=== PATIENT | male | born 1970 | race Caucasian/White ===

== ENCOUNTER 2018-01-12 13:09 | Inpatient (IN) | payer OTHER ==
[2018-01-12] VITALS (7 sets, daily range): BP systolic 112–121; BP diastolic 62–76; PULSE 60–69; RESP 12–16; TEMP 97.4–98.3; O2SAT 96–100
[~2018-01-12] VITALS: Ht 172.7 cm; Wt 81.1 kg
[~2018-01-12 13:09] MED LIST: DEXAMETHASONE SOD PHOS 4 MG/ML VIAL IV ONE; GLYCOPYRROLATE 1 MG/5 ML SYRINGE IV PUSH ONE; LIDOCAINE HCL 1% PF 5 ML SYRINGE OTHER ONE; NEOSTIGMINE 5 MG/5 ML SYRINGE IV PUSH ONE; ONDANSETRON HCL 4 MG/2 ML VIAL IV ONE; PROPOFOL 200 MG/20 ML AMP IV ONE; ROCURONIUM INJ 50 MG/5 ML SYRINGE IV PUSH ONE; SODIUM CHLOR 0.9% 1000 ML INJ 2,000 ML IV ONE; SUCCINYLCHOLINE CHLORIDE 100 MG/5 ML SYRINGE IV PUSH ONE; ceFAZolin INJ 1,000 MG VIAL IV ONE
[2018-01-12] MEDS ORDERED: SODIUM CHLORIDE 0.9% FLUSH 10 ML FLUSH IV FLUSH PRN (13:30)
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
[2018-01-12 13:42] LABS: AUTOMATED NEUTROPHIL # 9.7 TH/MM3 (1.8-7.7); BASOPHIL % 0.2 % (0.0-2.0); EOSINOPHIL # 0.1 TH/MM3 (0-0.4); EOSINOPHIL % 0.4 % (0.0-4.0); HEMATOCRIT 41.7 % (39.0-51.0); HEMOGLOBIN 14.3 GM/DL (13.0-17.0); LYMPH % 19.2 % (9.0-44.0); LYMPHOCYTE # 2.5 TH/MM3 (1.0-4.8); MEAN CELL VOLUME 92.7 FL (80.0-100.0); MEAN CORPUSCULAR HEMOGLOBIN 31.9 PG (27.0-34.0); MEAN CORPUSCULAR HGB CONC 34.4 % (32.0-36.0); MEAN PLATELET VOLUME 7.5 FL (7.0-11.0); MONO % 5.4 % (0.0-8.0); MONOCYTE # 0.7 TH/MM3 (0-0.9); NEUT % 74.8 % (16.0-70.0); PLATELET COUNT 200 TH/MM3 (150-450); RED CELL DISTRIBUTION WIDTH 12.7 % (11.6-17.2)
[2018-01-12 14:00] LABS: ALBUMIN 3.5 GM/DL (3.4-5.0); ALT (GPT) 19 U/L (12-78); AST (GOT) 13 U/L (15-37); BICARBONATE 26.5 MEQ/L (21.0-32.0); BLOOD UREA NITROGEN 15 MG/DL (7-18); CALCIUM 7.8 MG/DL (8.5-10.1); CHLORIDE 110 MEQ/L (98-107); CREATININE 1.13 MG/DL (0.60-1.30); GLOMERULAR FILTRATION RATE 70 ML/MIN (>89); GLUCOSE,RANDOM 121 MG/DL (74-106); SODIUM (NA) 144 MEQ/L (136-145)
[2018-01-12 14:02] LABS: ALKALINE PHOSPHATASE 38 U/L (45-117); TOTAL BILIRUBIN ADULT 0.6 MG/DL (0.2-1.0); TOTAL PROTEIN 6.4 GM/DL (6.4-8.2)
[2018-01-12 14:15] LABS: BILIRUBIN, URINE NEG (NEG); BLOOD, URINE NEG (NEG); GLUCOSE,URINE NEG (NEG); HYALINE CAST, URINE 5 /lpf (RARE); KETONE, URINE NEG (NEG); MUCUS URINE FEW /lpf (OCC); NITRITE,URINE NEG (NEG); PH, URINE 7.5 (5.0-8.5); URINE COLOR YELLOW (YELLW/STRAW); URINE LEUKOCYTE ESTERASE NEG (NEG)
[2018-01-12] MEDS ORDERED: PROPOFOL 200 MG/20 ML AMP IV ONE (14:15)
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
--- NOTE | 2018-01-12 15:13 | RADRPT ---
EXAM DATE/TIME: 01/12/2018 14:31 [facility] COMPARISON: ANKLE RIGHT COMPLETE ([id number]), January 12, 2018, 13:47. INDICATIONS : Post reduction of right ankle. MEDICAL HISTORY : Unresponsive. SURGICAL HISTORY : Unresponsive. ENCOUNTER: Initial ACUITY: 1 day PAIN SCORE: Non-responsive. LOCATION: Right Ankle. FINDINGS: There has been successful reduction of the previously seen ankle dislocation. The distal tibia and ta elmer are well aligned. The medial and lateral malleolar fragments are well aligned. There is a vertica l fracture through the anterior aspect of the distal tibia extending into the ankle joint. CONCLUSION: Successful reduction of the previously seen fracture/dislocation. James Guillen MD on January 12, 2018 at 15:09 Board Certified Radiologist. This report was verified electronically.
[2018-01-12] MEDS ORDERED: ACETAMINOPHEN 1000 MG/100 ML 100 ML IV ONE (15:33)
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
[2018-01-12] MEDS ORDERED: BUPIVACAINE HCL PF 0.25% 30 ML VIAL ONE (15:47)
[2018-01-12] MEDS ORDERED: NEOMYCIN/POLYMYXIN 1 ML G.U. IRRIGANT ONE (15:51)
[2018-01-12] MEDS ORDERED: MIDAZOLAM HCL 2 MG/2 ML VIAL ONE (18:06)
[2018-01-12] MEDS ORDERED: ceFAZolin INJ 1,000 MG VIAL IV ONE (18:14)
[2018-01-12] MEDS ORDERED: MAGNESIUM HYDROXIDE SUSP 30 ML CUP PO PRN (18:15)
[2018-01-12] MEDS ORDERED: Post-op Orders (for Pharmacy) XX ONE (18:15)
[2018-01-12] MEDS ORDERED: BISACODYL 10 MG SUPP RECTAL PRN (18:15)
[2018-01-12] MEDS ORDERED: LACTULOSE SYRUP 20 GM/30 ML CUP PO PRN (18:15)
[2018-01-12] MEDS ORDERED: PROMETHAZINE HCL 25 MG TAB PO PRN (18:15)
[2018-01-12] MEDS ORDERED: ZOLPIDEM TARTRATE 5 MG TAB PO PRN (18:15)
--- NOTE | 2018-01-12 18:16 | RADRPT ---
EXAM DATE/TIME: 01/12/2018 17:38 [facility] COMPARISON: No previous studies available for comparison. INDICATIONS : Right ankle ORIF with external fixation. MEDICAL HISTORY : None. SURGICAL HISTORY : None. ENCOUNTER: Initial ACUITY: 1 day PAIN SCORE: Non-responsive. LOCATION: Right ankle. CONCLUSION: Fluoroscopic images during placement of external fixation device. Bimalleolar fractures are seen. Vik Drew MD on January 12, 2018 at 18:13 Board Certified Radiologist. This report was verified electronically.
--- NOTE | 2018-01-12 18:25 | HHI.PR ---
Immediate Post Op Note Procedure Date: Jan 12, 2018 Pre Op Diagnosis: Right open ankle fracture dislocation Post Op Diagnosis: same Surgeon: Eric Wade Supervisor/Port Director(s): scrub Procedure: Right ankle incision bone debridement application of external fixator. Findings: mild contamination of fibula, dirt, grass Complications: None Specimen(s) removed: 2x deep bone cx, fibula and deep ankle Estimated blood loss: 50mL Anesthesia: General, Local Drains: None Tourniquet time (min at mmHg) 51 min 250 mmhg right ankle Patient to: Other Patient Condition: Good Implant/Devices: SEE IMPLANT LOG (if applicable) Date/Time of Procedure: SEE SURGICAL CARE RECORD Eric Wade DPM Jan 12, 2018 18:25
[2018-01-12] MEDS ORDERED: *MEPERIDINE 25 MG INJ VIAL PERIprocedural Use ONLY ONE (18:37)
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
[2018-01-12] MEDS: HYDROmorphone HCL PF 2 MG/ML VIAL IV PUSH PRN (20:45)
[2018-01-12] MEDS: DOCUSATE SODIUM 50 MG/SENNA 8.6 MG TAB PO SCH (20:47)
[2018-01-13] VITALS: BP 103/58; PULSE 63; RESP 18; TEMP 98.3; O2SAT 95
[2018-01-13] MEDS: ACETAMINOPHEN/HYDROcodone 325 MG/5 MG TAB PO PRN ×2 (02:54→19:56)
[2018-01-13 04:00] VITALS: BP 113/50; PULSE 80; RESP 16; TEMP 98.1; O2SAT 96
[2018-01-13] MEDS: ENOXAPARIN SODIUM 40 MG/0.4 ML SYRINGE SQ SCH (06:43)
[2018-01-13 08:00] VITALS: BP 103/56; PULSE 64; RESP 18; TEMP 98.3; O2SAT 97
[2018-01-13] MEDS ORDERED: MAGN30S PO (08:07)
[2018-01-13] MEDS ORDERED: PERI PO (08:07)
[2018-01-13] MEDS: FAMOTIDINE 20 MG TAB PO SCH ×2 (08:49→19:56)
[2018-01-13] MEDS: DOCUSATE SODIUM 50 MG/SENNA 8.6 MG TAB PO SCH ×2 (08:49→19:56)
--- NOTE | 2018-01-13 10:45 | PD.POD ---
Subjective Pain score: 7 Remarks No events overnight pain appears to be somewhat controlled with oral meds, he is seen bedside with his Past Med/Surg/Social History Social History Smoking Status: Never Smoker Objective Vital Signs Vital Signs Date Time Temp Pulse Resp B/P (MAP) Pulse Ox O2 Delivery O2 Flow Rate FiO2 01/13/18 08:00 98.3 64 18 103/56 (72) 97 01/13/18 04:00 98.1 80 16 113/50 (71) 96 01/13/18 00:00 98.3 63 18 103/58 (73) 95 01/12/18 20:38 99 Nasal Cannula 2.00 01/12/18 20:00 98.3 60 16 121/76 (91) 100 01/12/18 18:45 98.5 65 14 139/81 (100) 99 Nasal Cannula 2 01/12/18 18:30 62 14 136/79 (98) 100 Nasal Cannula 2 01/12/18 18:15 69 14 132/76 (94) 100 Nasal Cannula 2 01/12/18 18:00 98.5 57 14 123/69 (87) 100 Nasal Cannula 2 01/12/18 15:32 65 12 112/62 (79) 98 Nasal Cannula 2.00 01/12/18 15:32 65 12 112/62 (79) 98 Nasal Cannula 2.00 01/12/18 14:40 98 4.00 01/12/18 13:27 97.4 60 12 115/70 (85) 96 Nasal Cannula 2.00 01/12/18 13:25 97.4 68 12 115/70 (85) 96 Nasal Cannula 2.00 01/12/18 13:24 66 12 96 Nasal Cannula 2.00 01/12/18 13:15 97.4 69 12 115/70 (85) 96 Coded Allergies: No Known Allergies (Unverified , 01/12/18) Medications and IVs Administered Medications Medications (Trade) Dose Ordered Sig/Kristan Route PRN Reason Start Time Stop Time Status Last Admin Dose Admin Sodium Chloride (NS Flush) 2 ml UNSCH PRN IV FLUSH FLUSH AFTER USING IV ACCESS 01/12/18 13:30 01/12/18 20:47 Hydromorphone HCl (Dilaudid Pf Inj) 1 mg Q3H PRN IV PUSH breakthrough pain 01/12/18 18:15 01/12/18 20:45 Acetaminophen/ Hydrocodone Bitart ([place] 5-325 Mg) 1 tab Q4H PRN PO PAIN 1-5 01/12/18 18:15 01/13/18 02:54 Senna/Docusate Sodium (Magdalene-Colace) 1 tab BID PO 01/12/18 21:00 01/13/18 08:49 Enoxaparin Sodium (Lovenox Inj) 40 mg Q24H SQ 01/13/18 06:00 01/13/18 06:43 Famotidine (Pepcid) 20 mg BID PO 01/13/18 09:00 01/13/18 08:49 Other Results Laboratory Tests Test 01/12/18 13:30 White Blood Count 13.0 TH/MM3 Red Blood Count 4.50 MIL/MM3 Hemoglobin 14.3 GM/DL Hematocrit 41.7 % Mean Corpuscular Volume 92.7 FL Mean Corpuscular Hemoglobin 31.9 PG Mean Corpuscular Hemoglobin Concent 34.4 % Red Cell Distribution Width 12.7 % Platelet Count 200 TH/MM3 Mean Platelet Volume 7.5 FL Neutrophils (%) (Auto) 74.8 % Lymphocytes (%) (Auto) 19.2 % Monocytes (%) (Auto) 5.4 % Eosinophils (%) (Auto) 0.4 % Basophils (%) (Auto) 0.2 % Neutrophils # (Auto) 9.7 TH/MM3 Lymphocytes # (Auto) 2.5 TH/MM3 Monocytes # (Auto) 0.7 TH/MM3 Eosinophils # (Auto) 0.1 TH/MM3 Basophils # (Auto) 0.0 TH/MM3 CBC Comment DIFF FINAL Differential Comment Laboratory Tests Test 01/12/18 13:30 Blood Urea Nitrogen 15 MG/DL Creatinine 1.13 MG/DL Random Glucose 121 MG/DL Total Protein 6.4 GM/DL Albumin 3.5 GM/DL Calcium Level 7.8 MG/DL Alkaline Phosphatase 38 U/L Aspartate Amino Transf (AST/SGOT) 13 U/L Alanine Aminotransferase (ALT/SGPT) 19 U/L Total Bilirubin 0.6 MG/DL Sodium Level 144 MEQ/L Potassium Level 3.8 MEQ/L Chloride Level 110 MEQ/L Carbon Dioxide Level 26.5 MEQ/L Anion Gap 8 MEQ/L Estimat Glomerular Filtration Rate 70 ML/MIN Microbiology Date/Time Source Procedure Growth Status 01/12/18 17:43 Wound Ankle Fungal Smear Pending Received 01/12/18 17:43 Wound Ankle Fungal Culture Pending Received 01/12/18 17:43 Wound Ankle Acid Fast Stain Pending Received 01/12/18 17:43 Wound Ankle Mycobacterial Culture Pending Received 01/12/18 17:43 Wound Ankle Gram Stain - Final Resulted 01/12/18 17:43 Wound Ankle Wound Culture Pending Resulted 01/12/18 17:43 Wound Leg Fungal Smear Pending Received 01/12/18 17:43 Wound Leg Fungal Culture Pending Received 01/12/18 17:43 Wound Leg Acid Fast Stain Pending Received 01/12/18 17:43 Wound Leg Mycobacterial Culture Pending Received 01/12/18 17:43 Wound Leg Gram Stain - Final Resulted 01/12/18 17:43 Wound Leg Wound Culture Pending Resulted Objective Remarks Last 72 hours Impressions Chest X-Ray 01/12/18 1319 Signed Impressions: Service Date/Time: Friday, January 12, 2018 13:45 - CONCLUSION: No acute disease. James Guillen MD Ankle X-Ray 01/12/18 1319 Signed Impressions: Service Date/Time: Friday, January 12, 2018 13:47 - CONCLUSION: Fracture and dislocation at the ankle with the foot, medial and lateral malleoli fracture fragments being medially displaced. James Guillen MD Pelvis X-Ray 01/12/18 0000 Signed Impressions: Service Date/Time: Friday, January 12, 2018 13:41 - CONCLUSION: No acute disease. James Guillen MD Lower Extremity CT 01/12/18 0000 Signed Impressions: Service Date/Time: Friday, January 12, 2018 15:03 - CONCLUSION: Distal tibia and fibular fractures as described above. The ankle is aligned. The fracture fragments are fairly well aligned. James Guillen MD Ankle X-Ray 01/12/18 0000 Signed Impressions: Service Date/Time: Friday, January 12, 2018 17:38 - CONCLUSION: Fluoroscopic images during placement of external fixation device. Bimalleolar fractures are seen. Vik Drew MD Ankle X-Ray 01/12/18 0000 Signed Impressions: Service Date/Time: Friday, January 12, 2018 14:31 - CONCLUSION: Successful reduction of the previously seen fracture/dislocation. James Guillen MD Exam-Podiatry Remarks Right lower extremity: External fixator intact tibia to calcaneus, good alignment of ankle, positive range of motion of digits, neurovascular status intact, no strikethrough noted on bandage. Left lower extremity: Superficial abrasion to the anterior knee, bandage in place. Good range of motion left foot and ankle neurovascular status intact Physical Exam General appearance: comfortable Nutritional status: normal Orientation: alert and oriented x3 Neck: FINDINGS: normal Chest appearance: normal Respiratory effort: FINDINGS: normal Affect: normal Assessment & Plan A/P Right open ankle fracture dislocation Postop day 1, application of external fixator with incision irrigation and debridement. Wound cultures pending, patient has received IV antibiotics, continue pain management. Bandage to be changed tomorrow to evaluate soft tissue, possible definitive surgery as early as Sunday. Dr. Reyes to follow patient tomorrow to evaluate. Multiple questions answered from patient and regarding recovery. Eric Avalos DPM Jan 13, 2018 10:45
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
[2018-01-13 12:00] VITALS: BP 100/60; PULSE 62; RESP 18; TEMP 98.6; O2SAT 97
[2018-01-13] MEDS: ACETAMINOPHEN/HYDROcodone 325 MG/10 MG TAB PO PRN ×2 (13:38→23:40)
[2018-01-13 16:00] VITALS: BP 120/66; PULSE 54; RESP 18; TEMP 98.9; O2SAT 99
[2018-01-13] MEDS: MAGNESIUM HYDROXIDE SUSP 30 ML CUP PO SCH (16:33)
[2018-01-13] MEDS ORDERED: ENOXAPARIN SODIUM 40 MG/0.4 ML SYRINGE SQ SCH (17:00)
[2018-01-13 20:44] VITALS: BP 126/72; PULSE 62; RESP 18; TEMP 99; O2SAT 97
[2018-01-14 00:20] VITALS: BP 122/67; PULSE 59; RESP 18; TEMP 98.9; O2SAT 95
[2018-01-14 04:56] LABS: ALBUMIN 3.5 GM/DL (3.4-5.0); ALT (GPT) 15 U/L (12-78); AST (GOT) 13 U/L (15-37); BICARBONATE 27.9 MEQ/L (21.0-32.0); BLOOD UREA NITROGEN 13 MG/DL (7-18); CALCIUM 8.2 MG/DL (8.5-10.1); CHLORIDE 109 MEQ/L (98-107); CREATININE 0.99 MG/DL (0.60-1.30); GLOMERULAR FILTRATION RATE 81 ML/MIN (>89); GLUCOSE,RANDOM 94 MG/DL (74-106); SODIUM (NA) 143 MEQ/L (136-145)
[2018-01-14 04:57] LABS: AUTOMATED NEUTROPHIL # 7.4 TH/MM3 (1.8-7.7); BASOPHIL % 0.2 % (0.0-2.0); EOSINOPHIL # 0.1 TH/MM3 (0-0.4); EOSINOPHIL % 0.5 % (0.0-4.0); HEMATOCRIT 41.4 % (39.0-51.0); HEMOGLOBIN 14.2 GM/DL (13.0-17.0); LYMPH % 28.4 % (9.0-44.0); LYMPHOCYTE # 3.3 TH/MM3 (1.0-4.8); MEAN CELL VOLUME 93.4 FL (80.0-100.0); MEAN CORPUSCULAR HEMOGLOBIN 31.9 PG (27.0-34.0); MEAN CORPUSCULAR HGB CONC 34.2 % (32.0-36.0); MEAN PLATELET VOLUME 8.1 FL (7.0-11.0); MONO % 7.6 % (0.0-8.0); MONOCYTE # 0.9 TH/MM3 (0-0.9); NEUT % 63.3 % (16.0-70.0); PLATELET COUNT 173 TH/MM3 (150-450); RED BLOOD COUNT 4.43 MIL/MM3 (4.50-5.90); RED CELL DISTRIBUTION WIDTH 13.1 % (11.6-17.2); WHITE BLOOD COUNT 11.7 TH/MM3 (4.0-11.0)
[2018-01-14 04:59] LABS: ALKALINE PHOSPHATASE 35 U/L (45-117); TOTAL BILIRUBIN ADULT 0.7 MG/DL (0.2-1.0); TOTAL PROTEIN 6.9 GM/DL (6.4-8.2)
[2018-01-14 05:04] VITALS: BP 131/67; PULSE 61; RESP 20; TEMP 98.4; O2SAT 97
[2018-01-14] MEDS: MAGNESIUM HYDROXIDE SUSP 30 ML CUP PO SCH ×2 (05:10→16:11)
[2018-01-14] MEDS: ACETAMINOPHEN/HYDROcodone 325 MG/10 MG TAB PO PRN ×4 (05:11→21:30)
[2018-01-14] MEDS: ENOXAPARIN SODIUM 40 MG/0.4 ML SYRINGE SQ SCH (06:05)
[2018-01-14 08:00] VITALS: BP 133/79; PULSE 61; RESP 17; TEMP 98.5; O2SAT 95
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
[2018-01-14] MEDS: FAMOTIDINE 20 MG TAB PO SCH ×2 (11:29→21:30)
[2018-01-14] MEDS: DOCUSATE SODIUM 50 MG/SENNA 8.6 MG TAB PO SCH ×2 (11:29→21:30)
[2018-01-14] MEDS: SENNOSIDES 8.6 MG TAB PO PRN (11:29)
[2018-01-14 12:00] VITALS: BP 131/77; PULSE 58; RESP 17; TEMP 98.1; O2SAT 95
[2018-01-14] MEDS: GABAPENTIN 300 MG CAP PO SCH ×2 (13:52→16:11)
[2018-01-14 16:00] VITALS: BP 140/84; PULSE 58; RESP 18; TEMP 97.8; O2SAT 97
--- NOTE | 2018-01-14 17:32 | PD.POD ---
Subjective Podiatric Problems s/p Right ankle closed reduction with external fixation on 01/12 secondary to open ankle fracture. Pt states the pain is tolerable. He denies any n/v/f/h/c/ sob. Pain score: 4 Past Med/Surg/Social History Social History Smoking Status: Never Smoker Objective Vital Signs Vital Signs Date Time Temp Pulse Resp B/P (MAP) Pulse Ox O2 Delivery O2 Flow Rate FiO2 01/14/18 16:00 97.8 58 18 140/84 (102) 97 01/14/18 12:00 98.1 58 17 131/77 (95) 95 01/14/18 08:00 98.5 61 17 133/79 (97) 95 01/14/18 05:04 98.4 61 20 131/67 (88) 97 01/14/18 00:20 98.9 59 18 122/67 (85) 95 01/13/18 20:44 99.0 62 18 126/72 (90) 97 Coded Allergies: No Known Allergies (Unverified , 01/12/18) Exam-Podiatry Remarks Right ankle ex fix intact, pin sites are clean, mild/mod edema, lateral sutures are intact, no ecchymosis no fracture blister. Calf is supple and non tender to compression. AROM to digits and sensation intact. Assessment & Plan A/P 1) right ankle fx, s/p ex fix application - to OR tomorrow for ORIF -NPO after midnight -ice and NSAIDs -cont pain meds -procedure explained in detail, no guarantees given Georgie Granda DPM Jan 14, 2018 17:32
[2018-01-14 20:00] VITALS: BP 109/69; PULSE 69; RESP 17; TEMP 98.7; O2SAT 96
[2018-01-14] MEDS ORDERED: SODIUM CHLORID 0.9% 500 ML IV PRN (20:45)
[2018-01-14] MEDS ORDERED: POVIDONE IODINE 5% (ANTISEPSIS KIT) 4 APPLICATIONS EACH NARE PRN (20:45)
[2018-01-14] MEDS ORDERED: CHLORHEXIDINE GLUCONATE 2 % 1 PACK (2 CLOTHS) TOPICAL PRN (20:45)
[2018-01-14] MEDS ORDERED: METOPROLOL TARTRATE 25 MG TAB PO PRN (20:45)
[2018-01-14] MEDS ORDERED: INSULIN HUMAN REGULAR 1,000 UNITS/10 ML VIAL SQ PRN (20:45)
[2018-01-14] MEDS ORDERED: LACTATED RINGER'S 1000 ML IV PRN (20:45)
[2018-01-15 00:01] VITALS: BP 128/73; PULSE 51; RESP 17; TEMP 98.8; O2SAT 96
[2018-01-15 04:00] VITALS: BP 112/70; PULSE 61; RESP 18; TEMP 98.8; O2SAT 96
[2018-01-15] MEDS: MAGNESIUM HYDROXIDE SUSP 30 ML CUP PO SCH ×2 (05:12→18:00)
[2018-01-15] MEDS: ENOXAPARIN SODIUM 40 MG/0.4 ML SYRINGE SQ SCH (05:12)
[2018-01-15 07:48] VITALS: BP 147/81; PULSE 67; RESP 18; TEMP 98.3; O2SAT 97
[2018-01-15] MEDS: DOCUSATE SODIUM 50 MG/SENNA 8.6 MG TAB PO SCH ×2 (08:20→21:02)
[2018-01-15] MEDS: ACETAMINOPHEN/HYDROcodone 325 MG/10 MG TAB PO PRN ×2 (08:20→21:02)
[2018-01-15] MEDS: FAMOTIDINE 20 MG TAB PO SCH ×2 (08:20→21:02)
[2018-01-15] MEDS: GABAPENTIN 300 MG CAP PO SCH ×3 (08:20→18:00)
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
[2018-01-15 11:35] VITALS: BP 123/85; PULSE 65; RESP 18; TEMP 98; O2SAT 95
[2018-01-15] MEDS ORDERED: HYDR-3583 PO (11:42)
[2018-01-15] MEDS ORDERED: WHEEMIS3 (11:44)
[2018-01-15] MEDS ORDERED: WALKER WHEELS/F1 MIS (11:44)
[2018-01-15] MEDS ORDERED: LIDOCAINE HCL 1% PF 5 ML SYRINGE OTHER ONE (12:00)
[2018-01-15] MEDS ORDERED: PROPOFOL 200 MG/20 ML AMP IV ONE (12:00)
[2018-01-15] MEDS ORDERED: ceFAZolin INJ 1,000 MG VIAL IV ONE ×2 (12:00→14:54)
[2018-01-15] MEDS ORDERED: ONDANSETRON HCL 4 MG/2 ML VIAL IV ONE (12:00)
[2018-01-15] MEDS ORDERED: DEXAMETHASONE SOD PHOS 4 MG/ML VIAL IV ONE (12:00)
[2018-01-15] MEDS ORDERED: LACTATED RINGER'S 1000 ML INJ 1,000 ML IV ONE (12:00)
[2018-01-15] MEDS: SODIUM CHLORIDE 0.9% FLUSH 10 ML FLUSH IV FLUSH PRN ×2 (13:05→22:54)
[2018-01-15] MEDS ORDERED: ACETAMINOPHEN 1000 MG/100 ML 100 ML IV ONE ×2 (13:19→14:30)
[2018-01-15] MEDS ORDERED: GENTAMICIN SULFATE 80 MG/2 ML VIAL ONE (13:46)
[2018-01-15] MEDS ORDERED: FAMOTIDINE 20 MG/2 ML VIAL IV ONE (14:30)
[2018-01-15] MEDS ORDERED: DO NOT ADM ANY ANTICOAGULANT DRUGS PRN (14:55)
[2018-01-15] MEDS ORDERED: BUPIVACAINE HCL PF 0.5% 30 ML VIAL INFIL ONE (16:58)
[2018-01-15] MEDS ORDERED: MIDAZOLAM HCL 2 MG/2 ML VIAL ONE (17:00)
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
--- NOTE | 2018-01-15 17:38 | RADRPT ---
EXAM DATE/TIME: 01/15/2018 16:57 [facility] COMPARISON: ANKLE RIGHT COMPLETE ([id number]), January 12, 2018, 14:31. INDICATIONS : Post reduction. MEDICAL HISTORY : None. SURGICAL HISTORY : None. ENCOUNTER: Initial ACUITY: 1 day PAIN SCORE: Non-responsive. LOCATION: Right ankle FINDINGS: Interval plate and screw fixation of the medial and lateral malleoli. Hardware appears intact and wel l positioned. There is near anatomic alignment. No new fractures. Surgical staple lines in the medial ankle. CONCLUSION: 1. Interval ankle ORIF, as above. Geoffrey Allen MD on January 15, 2018 at 17:33 Board Certified Radiologist. This report was verified electronically.
[2018-01-15 18:00] VITALS: BP 136/82; PULSE 63; RESP 18; TEMP 98; O2SAT 96
[2018-01-15 20:00] VITALS: BP 134/77; PULSE 74; RESP 20; TEMP 98.6; O2SAT 97
[2018-01-15] MEDS: HYDROmorphone HCL PF 2 MG/ML VIAL IV PUSH PRN (22:54)
[2018-01-16] VITALS: BP 125/77; PULSE 68; RESP 20; TEMP 99.3; O2SAT 94
[2018-01-16 04:00] VITALS: BP 137/87; PULSE 63; RESP 18; TEMP 98.8; O2SAT 18
[2018-01-16 04:09] LABS: AUTOMATED NEUTROPHIL # 10.3 TH/MM3 (1.8-7.7); BASOPHIL % 0.2 % (0.0-2.0); EOSINOPHIL % 0.1 % (0.0-4.0); HEMATOCRIT 42.8 % (39.0-51.0); HEMOGLOBIN 14.8 GM/DL (13.0-17.0); LYMPH % 16.8 % (9.0-44.0); LYMPHOCYTE # 2.3 TH/MM3 (1.0-4.8); MEAN CELL VOLUME 92.3 FL (80.0-100.0); MEAN CORPUSCULAR HEMOGLOBIN 31.9 PG (27.0-34.0); MEAN CORPUSCULAR HGB CONC 34.5 % (32.0-36.0); MEAN PLATELET VOLUME 7.9 FL (7.0-11.0); MONO % 7.1 % (0.0-8.0); NEUT % 75.8 % (16.0-70.0); PLATELET COUNT 255 TH/MM3 (150-450); RED BLOOD COUNT 4.64 MIL/MM3 (4.50-5.90); RED CELL DISTRIBUTION WIDTH 12.7 % (11.6-17.2); WHITE BLOOD COUNT 13.6 TH/MM3 (4.0-11.0)
[2018-01-16 04:35] LABS: BICARBONATE 28.2 MEQ/L (21.0-32.0); CALCIUM 8.8 MG/DL (8.5-10.1); CREATININE 1.09 MG/DL (0.60-1.30)
[2018-01-16] MEDS: ENOXAPARIN SODIUM 40 MG/0.4 ML SYRINGE SQ SCH (05:18)
[2018-01-16] MEDS: SENNOSIDES 8.6 MG TAB PO PRN (05:18)
[2018-01-16] MEDS: MAGNESIUM HYDROXIDE SUSP 30 ML CUP PO SCH ×2 (05:18→07:41)
[2018-01-16] MEDS: SODIUM CHLORIDE 0.9% FLUSH 10 ML FLUSH IV FLUSH PRN (05:19)
[2018-01-16] MEDS: HYDROmorphone HCL PF 2 MG/ML VIAL IV PUSH PRN ×2 (05:19→09:03)
[2018-01-16] MEDS: ACETAMINOPHEN/HYDROcodone 325 MG/10 MG TAB PO PRN ×3 (06:51→21:54)
[2018-01-16 08:09] VITALS: BP 149/94; PULSE 68; RESP 17; TEMP 98.5; O2SAT 98
[2018-01-16] MEDS: FAMOTIDINE 20 MG TAB PO SCH ×2 (09:02→20:21)
[2018-01-16] MEDS: DOCUSATE SODIUM 50 MG/SENNA 8.6 MG TAB PO SCH ×2 (09:02→20:23)
[2018-01-16] MEDS: GABAPENTIN 300 MG CAP PO SCH ×3 (09:02→17:58)
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
[2018-01-16] MEDS ORDERED: fentaNYL 50 MCG/HR PATCH T-DERMAL SCH (11:00)
[2018-01-16 12:21] VITALS: BP 125/78; PULSE 62; RESP 18; TEMP 97.6; O2SAT 95
[2018-01-16 16:21] VITALS: BP 127/84; PULSE 85; RESP 17; TEMP 97.2; O2SAT 96
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
[2018-01-16 20:00] VITALS: BP 136/75; PULSE 83; RESP 17; TEMP 98; O2SAT 96
[2018-01-17] MEDS: MAGNESIUM HYDROXIDE SUSP 30 ML CUP PO SCH ×2 (06:01→16:52)
[2018-01-17] MEDS: ENOXAPARIN SODIUM 40 MG/0.4 ML SYRINGE SQ SCH (06:01)
[2018-01-17] MEDS: ACETAMINOPHEN/HYDROcodone 325 MG/10 MG TAB PO PRN ×3 (06:40→16:51)
[2018-01-17] MEDS ORDERED: ENOX40P SQ (07:07)
[2018-01-17] MEDS ORDERED: NEUR300C PO (07:07)
[2018-01-17] MEDS ORDERED: CEPH-460 PO (07:07)
[2018-01-17 08:36] VITALS: BP 144/88; PULSE 60; RESP 18; TEMP 98.3; O2SAT 97
[2018-01-17] MEDS: FAMOTIDINE 20 MG TAB PO SCH (09:36)
[2018-01-17] MEDS: GABAPENTIN 300 MG CAP PO SCH ×3 (09:36→16:47)
[2018-01-17] MEDS: DOCUSATE SODIUM 50 MG/SENNA 8.6 MG TAB PO SCH (09:36)
[2018-01-17 11:50] VITALS: BP 124/73; PULSE 72; RESP 18; TEMP 97.4; O2SAT 94
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
[2018-01-22] MEDS ORDERED: REMOVE OLD DURAGESIC (FENTANYL) PATCH T-DERMAL SCH (11:00)
== END 2018-01-17 17:27 | disposition home or self-care (01) | DRG 494 ==
LOC: NEPE 13:09 → NEDA 14:57 → N06B 18:59
PROVIDERS: ADMIT Surgery; ATTEND Surgery
PROC: 0QSG35Z Reposition Right Tibia with External Fixation Device, Percutaneous Approach (ICD-10-PCS; 2018-01-12)
PROC: 0SSFXZZ Reposition Right Ankle Joint, External Approach (ICD-10-PCS; 2018-01-12)
PROC: 0QSJ35Z Reposition Right Fibula with External Fixation Device, Percutaneous Approach (ICD-10-PCS; principal; 2018-01-12 16:16)
PROC: 0QSJ04Z Reposition Right Fibula with Internal Fixation Device, Open Approach (ICD-10-PCS; 2018-01-15)
PROC: 0QSG04Z Reposition Right Tibia with Internal Fixation Device, Open Approach (ICD-10-PCS; 2018-01-15)
PROC: 0QPJX5Z Removal of External Fixation Device from Right Fibula, External Approach (ICD-10-PCS; 2018-01-15)
PROC: 0QPGX5Z Removal of External Fixation Device from Right Tibia, External Approach (ICD-10-PCS; 2018-01-15)
DX: S82.841B Displaced bimalleolar fracture of right lower leg, initial encounter for open fracture type I or II (principal); S80.212A Abrasion, left knee, initial encounter; V29.9XXA Motorcycle rider (driver) (passenger) injured in unspecified traffic accident, initial encounter
CPT/HCPCS: 71045; 72170; 73600; 73610; 73700; 76000; 80048; 80053; 81001; 85025; 87015; 87070; 87102; 87116; 87205; 87206; 94150; C1713; J0131; J0330; J0690; J1100; J1170; J1580; J1650; J2175; J2250; J2405; J2710; J3010; J7030; J7120